=== PATIENT | male | born 1960 | race Caucasian/White ===

== ENCOUNTER → 2020-03-20 | Outpatient (CLI) | payer OTHER ==
[~2020-03-20] MED LIST: LISINOPRIL30 MG; NORCO 5-325 TA1 EACH PO
--- NOTE | 2020-04-08 14:31 | SLEEP ---
[address] [address] SLEEP STUDY REPORT Name: ALLIEGITA Room: [facility]#: [id number] Admission: 03/20/20 Attend Phys: Sabas Persaud MD Discharge: Date of : 58 Report #: [id number] THIS REPORT FOR: //name// CC: Sabas Bee [facility] This study has been reviewed in its entirety by a board certified sleep specialist DATE OF SERVICE: 03/21/2020 HOME SLEEP STUDY INTERPRETATION: Total duration of the study is 509 minutes. During this time duration, we recorded 34 obstructive apneas in addition to 71 hypopneas with an overall apnea-hypopnea index of 12.8. Body position data indicates that the patient was observed in the supine position for 206 minutes. The rest of the time, the patient was on the right side. Events did appear to be more common when the patient was lying supine. Supine apnea-hypopnea index was higher at 18.5. We did record multiple desaturations. Overall, the patient did spend 183 minutes below an O2 saturation of 90%. Mean heart rate was 54. IMPRESSION: Obstructive sleep apnea with an apnea-hypopnea index of 12.8. Events are more common when the patient is lying supine. There is marked nocturnal hypoxemia. The patient spent 183 minutes below an O2 saturation of 90%. RECOMMENDATIONS: Concerning the fact that the patient had significant nocturnal hypoxemia, I favor proceeding with an in-lab sleep study to evaluate further and perform a positive airway pressure titration rather than proceeding with the use of CPAP auto-titrated device. Clinical correlation is advised. Recommend avoiding driving or other activities requiring vigilance if drowsy. This entire sleep study was reviewed by a board certified sleep physician. <ELECTRONICALLY SIGNED> By: Sabas Persaud MD 04/08/20 [id number] Persaud MD /nt
== END ==
LOC: M.PUL 15:00
PROVIDERS: ATTEND Internal Medicine Critical Care Medicine
DX: G47.33 Obstructive sleep apnea (adult) (pediatric) (principal); G47.10 Hypersomnia, unspecified; E66.9 Obesity, unspecified; I10 Essential (primary) hypertension